=== PATIENT | male | born 1950 | race Caucasian/White ===

== ENCOUNTER 2018-04-20 03:24 | Emergency (ER) | payer BC, OTHER ==
[2018-04-20 04:01] LABS: Absolute Lymphocytes (CBC) 1.2 K/uL (0.7-4.9); Absolute Monocytes 0.7 K/uL (0.1-1.3); Absolute Neutrophil 4.3 K/uL (1.8-8.0); Basophils % 0.6 % (0-1.3); Eosinophils % 4.3 % (0-4.4); Hematocrit 44.2 % (39.6-49.0); Lymphocytes % 18.3 % (15.3-44.8); MCH 30.4 pg (27.0-35.0); MCV 90.3 fL (80-100); MPV 9.6 fL (7.6-11.3); Monocytes % 10.9 % (3.3-12.3)
[2018-04-20 04:11] LABS: Protime INR 1.06
[2018-04-20 04:25] LABS: ALT/SGPT 26 U/L (12-78); AST/SGOT 16 U/L (15-37); Albumin 3.7 g/dL (3.4-5.0); Alkaline Phosphatase 74 U/L (45-117); BUN Blood Urea Nitrogen 16 mg/dL (7-18); Bicarbonate 26 mmol/L (21-32); Bilirubin Direct 0.2 mg/dL (0-0.2); Bilirubin Total 0.6 mg/dL (0.2-1.0); Glucose Level 106 mg/dL (74-106); Magnesium 2.5 mg/dL (1.8-2.4); NT PRO-BNP 57 pg/mL (<125); Protein, Total 7.1 g/dL (6.4-8.2); Sodium Level 138 mmol/L (136-145); Troponin (Emerg Dept Use Only) < 0.02 ng/mL (0.0-0.045)
[2018-04-20] MEDS ORDERED: HYDROCODONE/CHLORPHEN 5 ML/OSYR ONE (04:53)
[2018-04-20] MEDS ORDERED: ALBUTEROL 2.5 MG/3 ML NEB SOL ONE (04:53)
[2018-04-20] MEDS ORDERED: IPRATROPIUM BROM 0.5MG/2.5ML ONE (04:53)
[2018-04-20] MEDS ORDERED: predniSONE 20 MG TAB ONE (04:53)
[2018-04-20] MEDS ORDERED: METHYLPREDNISOLONE 125 MG INJ ONE (04:53)
[2018-04-20] MEDS ORDERED: CEFTRIAXONE 500 MG/VIAL ONE (05:27)
[2018-04-20] MEDS ORDERED: DEXAMETHASONE 10 MG/ML VIAL ONE (05:27)
[2018-04-20] MEDS ORDERED: AZITHROMYCIN 250 MG TAB ONE (05:27)
[2018-04-20] MEDS ORDERED: NA CHLORIDE 0.9% 50 ML IV ONE (05:28)
[2018-04-20] MEDS ORDERED: PANTOPRAZOLE 40 MG INJ ONE (05:28)
[2018-04-20] MEDS ORDERED: LEVALBUTEROL 1.25 MG/3 ML NEB ONE (05:50)
--- NOTE | 2018-04-20 06:16 | ER ---
Nurse's Notes [facility] Name: Robert Love Jr Age: 68 yrs Sex: Male : 1950 Arrival Date: 04/20/2018 Time: 03:26 Bed 7 Private MD: Diagnosis: Cough;Bronchitis, not specified as acute or chronic;Acute upper respiratory infection, unspecified Presentation: 04/20 03:37 Presenting complaint: states: having productive cough since Wednesday yellowish rr5 phlegm no sore throat no fever reported. having auditory and visual hallucination seeing things around the house. Transition of care: patient was not received from another setting of care. Onset of symptoms was April 16, 2018. Risk Assessment: Do you want to hurt yourself or someone else? Patient reports no desire to harm self or others. Initial Sepsis Screen: Does the patient meet any 2 criteria? No. Patient's initial sepsis screen is negative. Does the patient have a suspected source of infection? No. Patient's initial sepsis screen is negative. Care prior to arrival: Medication(s) given: azithromycin and inhaler. 03:37 Method Of Arrival: Ambulatory rr5 03:56 Acuity: FRANCO 2 bb Triage Assessment: 03:46 General: Appears in no apparent distress. uncomfortable, Behavior is calm, cooperative, rr5 appropriate for age. Pain: Denies pain. Respiratory: Reports cough that is productive, Onset: The symptoms/episode began/occurred gradually, the patient has mild shortness of breath. Historical: - Allergies: 03:46 No Known Allergies; rr5 - Home Meds: 03:46 armor thyroid 30mg tablet [Active]; iodine oral oral [Active]; rasagaline [Active]; rr5 ropinirole oral oral [Active]; - PMHx: 03:46 Parkinsons; rr5 - Immunization history:: Adult Immunizations not up to date, Flu vaccine is not up to date. - Social history:: Smoking status: Patient/guardian denies using tobacco, Patient uses alcohol, occasionally. Patient/guardian denies using street drugs. - Ebola Screening: : Patient negative for fever greater than or equal to 101.5 degrees Fahrenheit, and additional compatible Ebola Virus Disease symptoms Patient denies exposure to infectious person Patient denies travel to an Ebola-affected area in the 21 days before illness onset. Screenin:50 Abuse screen: Denies threats or abuse. Denies injuries from another. Nutritional rr5 screening: No deficits noted. Tuberculosis screening: No symptoms or risk factors identified. Fall Risk IV access (20 points). Total Garcia Fall Scale indicates No Risk (0-24 pts). Assessment: 03:48 General: Appears in no apparent distress. uncomfortable, Behavior is calm, cooperative, rr5 appropriate for age. Pain: Denies pain. Neuro: Level of Consciousness is awake, alert, obeys commands, Oriented to person, place, time, situation. Cardiovascular: Capillary refill < 3 seconds Patient's skin is warm and dry. Rhythm is regular. Respiratory: Airway is patent Respiratory effort is even, Respiratory pattern is regular, tachypnea. GI: No signs and/or symptoms were reported involving the gastrointestinal system. : No signs and/or symptoms were reported regarding the genitourinary system. EENT: No signs and/or symptoms were reported regarding the EENT system. Derm: No signs and/or symptoms reported regarding the dermatologic system. Musculoskeletal: Capillary refill < 3 seconds, Range of motion: intact in all extremities. 03:50 Respiratory: Breath sounds with rhonchi bilaterally. Breath sounds with wheezes tl2 bilaterally. 05:30 Reassessment: Patient appears in no apparent distress at this time. coughing rr5 persistently, breathing treatment given. 06:00 Reassessment: Patient appears in no apparent distress at this time. Patient and/or rr5 family updated on plan of care and expected duration. Pain level reassessed. complaining of cough. breathing treatment rendered. 06:30 Reassessment: Patient appears in no apparent distress at this time. discharge rr5 instruction and medication explained with no question ask. feeling better now as verbalized Patient states feeling better. Patient states symptoms have improved. Vital Signs: 03:40 BP 155 / 110; Pulse 73; Resp 23; Temp 97.7; Pulse Ox 99% on R/A; Pain 0/10; rr5 03:48 Weight 105.23 kg; Height 6 ft. 0 in. (182.88 cm); rr5 05:14 BP 114 / 76; Pulse 80; Resp 18; Pulse Ox 98% on Nebulizer Mask; tl2 06:00 BP 133 / 76; Pulse 88; Resp 22; Pulse Ox 99% on R/A; rr5 06:46 BP 131 / 70; Pulse 85; Resp 20; Pulse Ox 99% on R/A; rr5 03:48 Body Mass Index 31.46 (105.23 kg, 182.88 cm) rr5 [place] Coma Score: 03:40 Eye Response: spontaneous(4). Verbal Response: oriented(5). Motor Response: obeys rr5 commands(6). Total: 15. ED Course: 03:26 Patient arrived in ED. al2 03:37 Franco Adams RN is Primary Nurse. rr5 03:40 Inserted saline lock: 20 gauge in right antecubital area, using aseptic technique. rr5 Blood collected. inserted by rosibel WEBSTER. 03:42 Triage completed. rr5 03:45 Patient has correct armband on for positive identification. Placed in gown. Bed in low rr5 position. Call light in reach. Side rails up X 1. Side rails up X2. Adult w/ patient. Pulse ox on. NIBP on. 03:48 Arm band placed on. rr5 03:53 Blood Culture Adult (2) Sent. tl2 03:55 X-ray completed. Portable x-ray completed in exam room. Patient tolerated procedure kw well. 04:05 Adrien Liu MD is Attending Physician. cathi 05:34 XRAY Chest (1 view) In Process Unspecified. EDMS 06:15 Blayne Luis MD is Referral Physician. cathi 06:30 No provider procedures requiring assistance completed. IV discontinued, intact, rr5 bleeding controlled, No redness/swelling at site. Pressure dressing applied. Administered Medications: 04:52 Drug: SOLU-Medrol 125 mg Route: IVP; Site: right antecubital; tl2 06:40 Follow up: Response: No adverse reaction rr5 04:52 Drug: predniSONE 60 mg Route: PO; tl2 06:40 Follow up: Response: No adverse reaction rr5 04:52 Drug: Albuterol - atroVENT (3:1) (2.5 mg - 0.5 mg) 3 ml Route: Nebulizer; tl2 06:40 Follow up: Response: No adverse reaction rr5 04:52 Drug: Tussionex Pennkinetic ER 5 ml Route: PO; tl2 06:40 Follow up: Response: No adverse reaction rr5 05:15 Drug: Decadron - Dexamethasone 10 mg Route: IVP; Site: right antecubital; rr5 06:40 Follow up: Response: No adverse reaction rr5 05:17 Drug: ProTONIX 40 mg Route: IVP; Site: right antecubital; rr5 06:40 Follow up: Response: No adverse reaction rr5 05:25 Drug: Rocephin - (cefTRIAXone) 1 grams Route: IVPB; Infused Over: 30 mins; Site: right rr5 antecubital; 06:00 Follow up: Response: No adverse reaction; IV Status: Completed infusion rr5 05:38 Drug: Zithromax 500 mg Route: PO; rr5 06:40 Follow up: Response: No adverse reaction rr5 05:58 Drug: Xopenex 2.5 mg Route: Inhalation; rr5 Outcome: 06:16 Discharge ordered by MD. winkler 06:30 Discharged to home ambulatory, with family. rr5 06:30 Condition: stable 06:30 Discharge instructions given to patient, family, Instructed on discharge instructions, follow up and referral plans. Demonstrated understanding of instructions, follow-up care, medications, Prescriptions given X 3. 06:48 Patient left the ED. rr5 Signatures: Dispatcher [employer] EDMS Adrien Liu MD MD cha Ballard, Brenda RN RN bb Margie Vail Taylor, RN RN derrell2 Jessica Esqueda Raymond RN RN rr5 Corrections: (The following items were deleted from the chart) 03:56 03:37 Acuity: FRANCO 3 rr5 bb
--- NOTE | 2018-04-20 06:17 | EDPHYS ---
Physician Documentation [facility] Name: Robert Love Jr Age: 68 yrs Sex: Male : 1950 Arrival Date: 04/20/2018 Time: 03:26 Bed 7 Private MD: ED Physician Adrien Liu HPI: 04/20 04:39 This 68 yrs old Male presents to ER via Ambulatory with complaints of cathi Productive Cough, HALLUCINATIONS. 04:39 The patient or guardian reports airway noise, cough, difficulty breathing. Onset: The cathi symptoms/episode began/occurred 3 day(s) ago. Severity of symptoms: At their worst the symptoms were mild, in the emergency department the symptoms are unchanged. Modifying factors: The symptoms are alleviated by nothing, the symptoms are aggravated by exertion. Associated signs and symptoms: The patient has no apparent associated signs or symptoms. The patient has experienced similar episodes in the past, several times. Historical: - Allergies: 03:46 No Known Allergies; rr5 - Home Meds: 03:46 armor thyroid 30mg tablet [Active]; iodine oral oral [Active]; rasagaline [Active]; rr5 ropinirole oral oral [Active]; - PMHx: 03:46 Parkinsons; rr5 - Immunization history:: Adult Immunizations not up to date, Flu vaccine is not up to date. - Social history:: Smoking status: Patient/guardian denies using tobacco, Patient uses alcohol, occasionally. Patient/guardian denies using street drugs. - Ebola Screening: : Patient negative for fever greater than or equal to 101.5 degrees Fahrenheit, and additional compatible Ebola Virus Disease symptoms Patient denies exposure to infectious person Patient denies travel to an Ebola-affected area in the 21 days before illness onset. ROS: 04:40 Constitutional: Negative for fever, chills, and weight loss, Eyes: Negative for injury, cathi pain, redness, and discharge, ENT: Negative for injury, pain, and discharge, Neck: Negative for injury, pain, and swelling, Cardiovascular: Negative for chest pain, palpitations, and edema, Abdomen/GI: Negative for abdominal pain, nausea, vomiting, diarrhea, and constipation, Back: Negative for injury and pain, : Negative for injury, bleeding, discharge, and swelling, MS/Extremity: Negative for injury and deformity, Skin: Negative for injury, rash, and discoloration, Neuro: Negative for headache, weakness, numbness, tingling, and seizure, Psych: Negative for depression, anxiety, suicide ideation, homicidal ideation, and hallucinations, Allergy/Immunology: Negative for hives, rash, and allergies, Endocrine: Negative for neck swelling, polydipsia, polyuria, polyphagia, and marked weight changes, Hematologic/Lymphatic: Negative for swollen nodes, abnormal bleeding, and unusual bruising. 04:40 Respiratory: Positive for cough, wheezing, inspiratory, expiratory. 04:40 MS/extremity: Negative for acute changes. Exam: 04:40 Constitutional: This is a well developed, well nourished patient who is awake, alert, cathi and in no acute distress. Head/Face: Normocephalic, atraumatic. Eyes: Pupils equal round and reactive to light, extra-ocular motions intact. Lids and lashes normal. Conjunctiva and sclera are non-icteric and not injected. Cornea within normal limits. Periorbital areas with no swelling, redness, or edema. ENT: Nares patent. No nasal discharge, no septal abnormalities noted. Tympanic membranes are normal and external auditory canals are clear. Oropharynx with no redness, swelling, or masses, exudates, or evidence of obstruction, uvula midline. Mucous membranes moist. Neck: Trachea midline, no thyromegaly or masses palpated, and no cervical lymphadenopathy. Supple, full range of motion without nuchal rigidity, or vertebral point tenderness. No Meningismus. Chest/axilla: Normal chest wall appearance and motion. Nontender with no deformity. No lesions are appreciated. Cardiovascular: Regular rate and rhythm with a normal S1 and S2. No gallops, murmurs, or rubs. Normal PMI, no JVD. No pulse deficits. Abdomen/GI: Soft, non-tender, with normal bowel sounds. No distension or tympany. No guarding or rebound. No evidence of tenderness throughout. Back: No spinal tenderness. No costovertebral tenderness. Full range of motion. Male : Normal genitalia with no discharge or lesions. Skin: Warm, dry with normal turgor. Normal color with no rashes, no lesions, and no evidence of cellulitis. MS/ Extremity: Pulses equal, no cyanosis. Neurovascular intact. Full, normal range of motion. Neuro: Awake and alert, GCS 15, oriented to person, place, time, and situation. Cranial nerves II-XII grossly intact. Motor strength 5/5 in all extremities. Sensory grossly intact. Cerebellar exam normal. Normal gait. Psych: Awake, alert, with orientation to person, place and time. Behavior, mood, and affect are within normal limits. 04:40 Respiratory: the patient does not display signs of respiratory distress, Respirations: normal, Breath sounds: bronchial sounds, that are mild, that are moderate, are heard in the left posterior upper lobe, right posterior upper lobe and right posterior middle lobe, decreased breath sounds, rhonchi, wheezing: expiratory that is mild, that is moderate. 04:43 Musculoskeletal/extremity: DVT Exam: No signs of deep vein thrombosis. no pain, no cathi swelling, no tenderness, negative Homans' sign noted on exam, no appreciated bluish discoloration, no erythema, no increased warmth. Vital Signs: 03:40 BP 155 / 110; Pulse 73; Resp 23; Temp 97.7; Pulse Ox 99% on R/A; Pain 0/10; rr5 03:48 Weight 105.23 kg; Height 6 ft. 0 in. (182.88 cm); rr5 05:14 BP 114 / 76; Pulse 80; Resp 18; Pulse Ox 98% on Nebulizer Mask; tl2 06:00 BP 133 / 76; Pulse 88; Resp 22; Pulse Ox 99% on R/A; rr5 06:46 BP 131 / 70; Pulse 85; Resp 20; Pulse Ox 99% on R/A; rr5 03:48 Body Mass Index 31.46 (105.23 kg, 182.88 cm) rr5 [place] Coma Score: 03:40 Eye Response: spontaneous(4). Verbal Response: oriented(5). Motor Response: obeys rr5 commands(6). Total: 15. MDM: 04:05 Patient medically screened. [facility] 04:40 Data reviewed: vital signs, nurses notes, lab test result(s), EKG, radiologic studies, [facility] plain films. 04/20 03:41 Order name: Basic Metabolic Panel; Complete Time: 04:38 tl2 04/20 03:41 Order name: CBC with Diff; Complete Time: 04:38 tl2 04/20 03:41 Order name: LFT's; Complete Time: 04:38 tl2 04/20 03:41 Order name: Magnesium; Complete Time: 04:38 tl2 04/20 03:41 Order name: NT PRO-BNP; Complete Time: 04:38 tl2 04/20 03:41 Order name: PT-INR; Complete Time: 04:38 tl2 04/20 03:41 Order name: Troponin (emerg Dept Use Only); Complete Time: 04:38 tl2 04/20 03:41 Order name: XRAY Chest (1 view) tl2 04/20 03:41 Order name: Blood Culture Adult (2) tl2 04/20 04:45 Order name: D-Dimer; Complete Time: 05:05 gm 04/20 03:41 Order name: EKG; Complete Time: 03:42 tl2 04/20 03:41 Order name: Cardiac monitoring; Complete Time: 03:41 tl2 04/20 03:41 Order name: EKG - Nurse/Tech; Complete Time: 03:53 tl2 04/20 03:41 Order name: IV Saline Lock; Complete Time: 03:41 tl2 04/20 03:41 Order name: Labs collected and sent; Complete Time: 03:41 tl2 04/20 03:41 Order name: O2 Per Protocol; Complete Time: 03:42 tl2 04/20 03:41 Order name: O2 Sat Monitoring; Complete Time: 03:42 tl2 Administered Medications: 04:52 Drug: SOLU-Medrol 125 mg Route: IVP; Site: right antecubital; tl2 06:40 Follow up: Response: No adverse reaction rr5 04:52 Drug: predniSONE 60 mg Route: PO; tl2 06:40 Follow up: Response: No adverse reaction rr5 04:52 Drug: Albuterol - atroVENT (3:1) (2.5 mg - 0.5 mg) 3 ml Route: Nebulizer; tl2 06:40 Follow up: Response: No adverse reaction rr5 04:52 Drug: Tussionex Pennkinetic ER 5 ml Route: PO; tl2 06:40 Follow up: Response: No adverse reaction rr5 05:15 Drug: Decadron - Dexamethasone 10 mg Route: IVP; Site: right antecubital; rr5 06:40 Follow up: Response: No adverse reaction rr5 05:17 Drug: ProTONIX 40 mg Route: IVP; Site: right antecubital; rr5 06:40 Follow up: Response: No adverse reaction rr5 05:25 Drug: Rocephin - (cefTRIAXone) 1 grams Route: IVPB; Infused Over: 30 mins; Site: right rr5 antecubital; 06:00 Follow up: Response: No adverse reaction; IV Status: Completed infusion rr5 05:38 Drug: Zithromax 500 mg Route: PO; rr5 06:40 Follow up: Response: No adverse reaction rr5 05:58 Drug: Xopenex 2.5 mg Route: Inhalation; rr5 Disposition: 04/20/18 06:16 Discharged to Home. Impression: Cough, Bronchitis, not specified as acute or chronic, Acute upper respiratory infection, unspecified. - Condition is Stable. - Discharge Instructions: Acute Bronchitis, Adult, How to Use an Inhaler, Upper Respiratory Infection, Adult, Cool Mist Vaporizer, Acute Bronchitis, [id number], Upper Respiratory Infection, Adult, Xcec-ia-Mmwp, Cough, Adult, [id number]-cc-[id number], Cough, Adult. - Prescriptions for Cheratussin AC 10- 100 mg/5 mL Oral liquid - take 10 milliliters by ORAL route every 4 hours; 180 milliliter. Prednisone 20 mg Oral Tablet - take 2 tablet by ORAL route once daily for 5 days; 10 tablet. Albuterol Sulfate 90 mcg/actuation - inhale 1-2 puff by INHALATION route every 4-6 hours; 1 Inhaler. Zithromax 500 mg Oral Tablet - take 1 tablet by ORAL route once daily for 5 days; 5 tablet. Protonix 40 mg Oral Tablet - take 1 tablet by ORAL route once daily; 30 tablet. - Medication Reconciliation Form, Thank You Letter, Antibiotic Education, Prescription Opioid Use form. - Follow up: Private Physician; When: 2 - 3 days; Reason: Recheck today's complaints, Continuance of care, Re-evaluation by your physician. Follow up: Blayne Luis; When: 2 - 3 days; Reason: Recheck today's complaints, Re-evaluation by your physician. - Problem is new. - Symptoms have improved. Signatures: Dispatcher [employer] EDAdrien Beal MD MD cha Knox, Taylor, RN RN tl2 Franco Adams RN RN rr5 Corrections: (The following items were deleted from the chart) 06:48 06:16 04/20/2018 06:16 Discharged to Home. Impression: Cough; Bronchitis, not specified rr5 as acute or chronic; Acute upper respiratory infection, unspecified. Condition is Stable. Discharge Instructions: Acute Bronchitis, Adult, How to Use an Inhaler, Upper Respiratory Infection, Adult, Cool Mist Vaporizer, Acute Bronchitis, Paeh-yu-Ijxp, Upper Respiratory Infection, Adult, Cxjv-rn-Gmpa, Cough, Adult, Ycnk-gf-Ivlw, Cough, Adult. Prescriptions for Prednisone 20 mg Oral Tablet - take 2 tablet by ORAL route once daily for 5 days; 10 tablet, Albuterol Sulfate 90 mcg/actuation - inhale 1-2 puff by INHALATION route every 4-6 hours; 1 Inhaler, Zithromax 500 mg Oral Tablet - take 1 tablet by ORAL route once daily for 5 days; 5 tablet, Cheratussin AC 10-100 mg/5 mL Oral liquid - take 10 milliliters by ORAL route every 4 hours; 180 milliliter, Protonix 40 mg Oral Tablet - take 1 tablet by ORAL route once daily; 30 tablet. and Forms are Medication Reconciliation Form, Thank You Letter, Antibiotic Education, Prescription Opioid Use. Follow up: Private Physician; When: 2 - 3 days; Reason: Recheck today's complaints, Continuance of care, Re-evaluation by your physician. Follow up: Blayne Luis; When: 2 - 3 days; Reason: Recheck today's complaints, Re-evaluation by your physician. Problem is new. Symptoms have improved. cathi
--- NOTE | 2018-04-20 07:54 | RAD REPORT ---
EXAM DESCRIPTION: [place] Single View04/20/2018 5:34 am CLINICAL HISTORY: Chest pain COMPARISON: March 2017 FINDINGS: The lungs appear clear of acute infiltrate. The heart is borderline enlarged IMPRESSION: No acute abnormalities displayed
--- NOTE | 2018-04-20 10:38 | EKG ---
Test Date: 2018-04-20 Test Time: 03:49:06 Extractor Plant Operator: FARHAD MEASUREMENT RESULTS: Intervals: Rate: 71 WY: 206 QRSD: 100 QT: 398 QTc: 432 [place]: P: 54 WY: 206 QRS: -26 T: 45 INTERPRETIVE STATEMENTS: Normal sinus rhythm Incomplete right bundle branch block Abnormal ECG No previous ECG available for comparison Electronically Signed On 04-20-18 10:37:41 AUTOMATION AND CONTROLS SUPERVISOR by Clifford Rodriguez
== END 2018-04-20 06:48 | disposition home or self-care (01) ==
LOC: ER 03:24
DX: J40 Bronchitis, not specified as acute or chronic (principal); J06.9 Acute upper respiratory infection, unspecified; G20 Parkinson's disease
CPT/HCPCS: 36415; 71045; 80048; 80076; 83735; 83880; 84484; 85025; 85379; 85610; 87040 ×2; 93005; 94640; 96365; 96375; 99284; C9113; J0696; J1100; J2930; J7512

== ENCOUNTER 2019-06-09 06:30 | Day surgery (SDC) | payer OTHER ==
--- NOTE | 2019-06-08 15:48 | RAD REPORT ---
EXAM DESCRIPTION: RAD - Chest Pa And Lat (2 Views) - 06/08/2019 3:05 pm CLINICAL HISTORY: pre op, patient pending right shoulder soft tissue mass removal COMPARISON: Chest Single View dated 04/20/2018; Chest Pa And Lat (2 Views) dated 04/08/2017 TECHNIQUE: Frontal and lateral views of the chest were obtained. FINDINGS: The lungs are clear of acute infiltrate or mass. Small nodule left midlung field stable ba ck to 2017. Interstitial pattern is stable. Heart size is normal and central vasculature is within normal limits. No pleural effusion or pneumothorax seen. No acute bony finding noted. No aortic ab normality. IMPRESSION: No acute cardiopulmonary process. No significant interval change.
[2019-06-08 16:08] LABS: Absolute Lymphocytes (CBC) 1.3 K/uL (0.7-4.9); Basophils % 0.7 % (0-1.3); Hematocrit 45.4 % (39.6-49.0); Lymphocytes % 19.3 % (15.3-44.8); MPV 10.1 fL (7.6-11.3); RBC Red Blood Cell Count 4.97 M/uL (4.33-5.43)
[2019-06-08 16:20] LABS: Potassium 4.2 mmol/L (3.5-5.1)
[2019-06-09] MEDS ORDERED: Ringers Lactate 1,000 ML IV ONE (06:43)
[2019-06-09] MEDS ORDERED: FENTANYL CITR 100 MCG/2 ML ONE (07:10)
[2019-06-09] MEDS ORDERED: propofoL 200 MG/20 ML VIAL IV ONE (07:10)
[2019-06-09] MEDS ORDERED: MIDAZOLAM HCL 2 MG/2 ML INJ ONE (07:11)
[2019-06-09] MEDS ORDERED: LIDOCAINE 2% MPF 5 ML VIAL ONE (07:11)
[2019-06-09] MEDS: CEFAZOLIN/SWI 1gm 1 GM/10 ML SYR ONE ×2 (07:15→07:23)
[2019-06-09] MEDS ORDERED: ONDANSETRON 4 MG/2 ML VIAL ONE (08:03)
[2019-06-09 08:37] VITALS: O2SAT 97
[2019-06-09 13:42] VITALS: BP 155/90; TEMP 97.4
--- NOTE | 2019-06-09 13:50 | EKG ---
Test Date: 2019-06-08 Test Time: 14:30:58 Dining Room Coordinator: EZEQUIEL MEASUREMENT RESULTS: Intervals: Rate: 75 MA: 208 QRSD: 90 QT: 384 QTc: 428 [place]: P: 40 MA: 208 QRS: -45 T: 25 INTERPRETIVE STATEMENTS: Normal sinus rhythm Left anterior fascicular block Anterolateral infarct, age undetermined Abnormal ECG Compared to ECG 04/20/2018 03:49:06 Left anterior fascicular block now present Myocardial infarct finding now present Incomplete right bundle-branch block no longer present Electronically Signed On 06-09-19 13:46:11 ASSET CARD CLERK by Ulisses Vasquez
--- NOTE | 2019-06-09 18:39 | OP ---
Date of Procedure: 06/09/2019 Surgeon: Juan Prado MD Media Planner / Buyer: RENE Sanchez Preoperative Diagnosis: Right posterior shoulder mass. Postoperative Diagnosis: Right posterior shoulder mass. Procedure: Wide excision, right posterior shoulder mass 6 x 4 cm with layered closure. Length of cl osure 6 cm. Estimated Blood Loss: Minimal. Specimen: Right posterior shoulder mass. Findings: Sebaceous cyst, slight inflamed. Anesthesia: General. Complications: None. Patient tolerated the procedure in stable condition, taken to Recovery in good general condition. Procedure In Detail: Patient was brought to the OR and placed in supine position. General anesthesi a was begun. Then, the patient was placed in left lateral position and prepped and draped in usual s terile fashion. Marcaine 0.5% was infiltrated locally. A 15-blade was used to make a 6 x 4 cm incis ion transverse over the punctum to include the punctum and the cyst wall of subcutaneous tissue, divi ded entire cyst intact, excised, sent to Pathology. Wound was irrigated. Bleeding controlled with c autery. Flaps created and then 2-0 chromic used for subcutaneous tissue and 3-0 nylon used to reappr oximate the skin with a little bit of room left for drainage purposes, then sterile dressing was appl ied. Patient was awakened and taken to Recovery in good general condition. Discharge Note: The patient will go to day surgery and home when stable. Disposition: Home. Condition: Stable. Discharge Instructions: Resume home medications and diet. Activity as tolerated. No heavy lifting. Remove outer dressing in 2 days. Shower. Keep wound clean and dry. Follow up in my office in 2 w eeks. Call for appointment. Tylenol No. 3 one tablet p.o. q.4 p.r.n. pain. Cipro 500 mg p.o. q.12 h. /MODL Voice ID: [id number] Report ID: [id number]
== END 2019-06-09 10:12 | disposition home or self-care (01) ==
LOC: OR 06:30
PROVIDERS: ATTEND Surgery
PROC: 0JBD0ZZ Excision of Right Upper Arm Subcutaneous Tissue and Fascia, Open Approach (ICD-10-PCS; principal; 2019-06-09 07:30)
DX: L72.0 Epidermal cyst (principal); G20 Parkinson's disease; E07.9 Disorder of thyroid, unspecified
CPT/HCPCS: 93005; 85025; 80048; 36415; 88304; 71046; 11406; J2704; J2250; J3010; J0690; J7120; J2405

== ENCOUNTER 2021-11-16 16:53 | Emergency (ER) | payer OTHER ==
[2021-11-16 17:26] LABS: Hematocrit 41.4 % (39.6-49.0); Lymphocytes % 16.8 % (15.3-44.8); MCV 90.9 fL (80-100); MPV 9.1 fL (7.6-11.3); RBC Red Blood Cell Count 4.55 M/uL (4.33-5.43)
[2021-11-16 17:42] LABS: Potassium 3.5 mmol/L (3.5-5.1); Troponin High Sensitivity 7.5 pg/mL (<58.9)
--- NOTE | 2021-11-16 18:45 | RAD REPORT ---
EXAM DESCRIPTION: CT - Head Brain Wo Cont - 11/16/2021 6:31 pm CLINICAL HISTORY: weakness Headache, drowsiness COMPARISON: No comparisons TECHNIQUE: All CT scans are performed using dose optimization technique as appropriate and may inclu de automated exposure control or mA/KV adjustment according to patient size. FINDINGS: No intracranial hemorrhage, hydrocephalus or extra-axial fluid collection.Mild generalized brain atrophy is present with mild periventricular and deep white matter chronic microvascular ische naun changes.No areas of brain edema or evidence of midline shift. The paranasal sinuses and mastoids are clear. The calvarium is intact. IMPRESSION: No acute intracranial abnormality.
[2021-11-16 20:35] LABS: Urine Blood Negative (Negative); Urine Glucose Negative (Negative); Urine Protein Negative (Negative); Urine Specific Gravity 1.025 (1.005-1.030)
--- NOTE | 2021-11-16 21:22 | ER ---
Nurse's Notes [facility] Name: Robert Love Jr Age: 71 yrs Sex: Male : 1950 Arrival Date: 11/16/2021 Time: 17:00 Bed 18 Private MD: Diagnosis: Weakness Presentation: 11/16 16:53 Chief complaint: EMS states: pt was at the local movie theater with his daughter. she tw2 said he was getting out of the vehicle and just was taking too long to move and just stood there in the heat and the daughter thinks he got over heated. we initially got bp of 80/50. upon arrival here we got 95/63. we started an 18g RIGHT hand and started NS. Coronavirus screen: At this time, the client does not indicate any symptoms associated with coronavirus-19. Ebola Screen: Patient denies travel to an Ebola-affected area in the 21 days before illness onset. Initial Sepsis Screen: Does the patient meet any 2 criteria? No. Patient's initial sepsis screen is negative. Does the patient have a suspected source of infection? No. Patient's initial sepsis screen is negative. Risk Assessment: Do you want to hurt yourself or someone else? Patient reports no desire to harm self or others. Note provider at bedside. Onset of symptoms was November 16, 2021. 16:53 Method Of Arrival: EMS: [facility] tw2 16:53 Acuity: FRANCO 2 tw2 16:53 Care prior to arrival: Medication(s) given: Normal saline infusion, approx 100 ml of NS tw2 IV initiated. 18 GA, in the right hand. Triage Assessment: 16:53 General: Appears in no apparent distress. well groomed, Behavior is calm, cooperative, tw2 appropriate for age. Pain: Denies pain. Neuro: Level of Consciousness is awake, alert, obeys commands, Oriented to person, place, time, situation. Cardiovascular: Capillary refill < 3 seconds Patient's skin is warm and dry. Respiratory: Airway is patent Respiratory effort is even, unlabored, Respiratory pattern is regular, symmetrical. GI: No signs and/or symptoms were reported involving the gastrointestinal system. Derm: Skin is intact, is healthy with good turgor, Skin is dry, Skin is pink, warm \\T\\ dry. Skin temperature is warm. Musculoskeletal: Range of motion: intact in all extremities. Historical: - Allergies: 17:57 No Known Allergies; tw2 - PMHx: 17:57 Parkinsons; Dementia; tw2 - Immunization history:: Adult Immunizations Client reports receiving the 2nd dose of the Covid vaccine. - Social history:: Smoking status: Patient denies any tobacco usage or history of. Screenin:14 Abuse screen: Denies threats or abuse. Nutritional screening: No deficits noted. tw2 Tuberculosis screening: No symptoms or risk factors identified. Fall Risk None identified. Assessment: 16:53 Reassessment: see triage assessment. tw2 17:57 Reassessment: Patient appears in no apparent distress at this time. No changes from tw2 previously documented assessment. Patient and/or family updated on plan of care and expected duration. Pain level reassessed. Patient is alert, oriented x 3, equal unlabored respirations, skin warm/dry/pink. 18:18 Reassessment: Patient appears in no apparent distress at this time. No changes from tw2 previously documented assessment. Patient and/or family updated on plan of care and expected duration. Pain level reassessed. Patient is alert, oriented x 3, equal unlabored respirations, skin warm/dry/pink. 18:31 Reassessment: pt is in CT at this time via stretcher with Rashawn Lopez. tw2 20:34 General: Appears in no apparent distress. comfortable, Behavior is calm, cooperative. lg3 Pain: Denies pain. Neuro: No deficits noted. Level of Consciousness is awake, alert, obeys commands, Oriented to person, place, time, situation. Cardiovascular: No deficits noted. Denies chest pain, shortness of breath, Capillary refill < 3 seconds Clubbing of nail beds is absent JVD is absent Patient's skin is warm and dry. Respiratory: No deficits noted. Airway is patent Trachea midline Respiratory effort is even, unlabored, Respiratory pattern is regular, symmetrical, Breath sounds are clear bilaterally. GI: No deficits noted. No signs and/or symptoms were reported involving the gastrointestinal system. Abdomen is round non-distended. : No deficits noted. No signs and/or symptoms were reported regarding the genitourinary system. EENT: No deficits noted. No signs and/or symptoms were reported regarding the EENT system. Derm: No deficits noted. No signs and/or symptoms reported regarding the dermatologic system. Skin is intact, is healthy with good turgor, Skin is dry, Skin temperature is warm. Musculoskeletal: No deficits noted. No signs and/or symptoms reported regarding the musculoskeletal system. Circulation, motion, and sensation intact. Range of motion: intact in all extremities. 21:54 Reassessment: Patient appears in no apparent distress at this time. No changes from lg3 previously documented assessment. Patient and/or family updated on plan of care and expected duration. Pain level reassessed. Patient is alert, oriented x 3, equal unlabored respirations, skin warm/dry/pink. Vital Signs: 16:53 BP 87 / 52; Pulse 73; Resp 14; Temp 99.1(TE); Pulse Ox 96% on R/A; Weight 99.79 kg (R); tw2 Height 6 ft. 0 in. (182.88 cm); 17:15 BP 104 / 62; Pulse 67; Resp 16; Pulse Ox 96% on R/A; tw2 17:30 BP 101 / 64; Pulse 68; Resp 15; Pulse Ox 96% on R/A; tw2 17:45 BP 129 / 72; Pulse 64; Resp 12; Pulse Ox 96% on R/A; tw2 18:00 BP 121 / 70; Pulse 62; Resp 14; Pulse Ox 96% on R/A; tw2 20:35 BP 165 / 103; Pulse 70; Resp 15 S; Pulse Ox 98% on R/A; lg3 21:54 BP 165 / 95; Pulse 71; Resp 16 S; Pulse Ox 99% on R/A; lg3 16:53 Body Mass Index 29.84 (99.79 kg, 182.88 cm) tw2 ED Course: 16:53 Arm band placed on. tw2 16:53 Placed in gown. Bed in low position. Call light in reach. Side rails up X2. Cardiac tw2 monitor on. Pulse ox on. NIBP on. 17:00 Patient arrived in ED. tw2 17:01 [facility] kb 17:01 Mauro Talbot MD is Attending Physician. kb 17:06 Triage completed. tw2 17:13 Sarah Bronson RN is Primary Nurse. tw2 17:14 Maintain EMS IV. Dressing intact. Good blood return noted. Site clean \\T\\ dry. Gauge \\T\\ tw 2 site: 18 g RIGHT hand. 17:29 EKG done, by ED staff, reviewed by Una DEY. mb7 18:33 CT Head Brain wo Cont In Process Unspecified. EDIA 19:30 Initial lab(s) drawn, by md, sent to lab. 19:30 Lactate Sent. 19:30 Procalcitonin Sent. 19:30 COVID-19 SARS RT PCR (Document "Date of Onset" if Symptomatic) Sent. 21:54 No provider procedures requiring assistance completed. IV discontinued, intact, lg3 bleeding controlled, No redness/swelling at site. Pressure dressing applied. Administered Medications: No medications were administered Medication: 17:59 VIS not applicable for this client. tw2 Outcome: 21:21 Discharge ordered by . kb 21:55 Discharged to home via wheelchair, with significant other. lg3 21:55 Condition: stable 21:55 Discharge instructions given to patient, significant other, Instructed on discharge instructions, follow up and referral plans. Demonstrated understanding of instructions, follow-up care. 22:05 Patient left the ED. lg3 Signatures: Dispatcher [employer] EDIA Una Shah, Sarah Rojas RN RN tw2 Cynthia Partida, DARIN RN lg3 Salina Lopez Mary mb7
--- NOTE | 2021-11-16 21:22 | EDPHYS ---
Physician Documentation [facility] Name: Robert Love Jr Age: 71 yrs Sex: Male : 1950 Arrival Date: 11/16/2021 Time: 17:00 Bed 18 Private MD: ED Physician Mauro Talbot HPI: 11/17 00:26 This 71 yrs old Male presents to ER via EMS with complaints of weakness. kb 00:26 The patient presents with generalized weakness. Onset: The symptoms/episode kb began/occurred today. Context: occurred outdoors, occurred while the patient was walking, just prior to the episode the patient experienced no apparent symptoms. Modifying factors: The symptoms are alleviated by nothing, the symptoms are aggravated by nothing. Associated signs and symptoms: The patient has no apparent associated signs or symptoms. Severity of symptoms: At their worst the symptoms were moderate in the emergency department the symptoms are unchanged. Patient's baseline: Neuro: alert and fully oriented, Motor: no deficits, Ambulation: walks with assist only, Speech: normal. The patient has not experienced similar symptoms in the past. The patient has not recently seen a physician. Pt brought in for weakness and possibly getting overheated. EMS reports pt was going to the movie theater, daughter reports pt took longer than normal to get out of the car and that he was in the heat. Pt has no complaints. Equal strength. Pt has history of dementia and parkinsons. Historical: - Allergies: 11/16 17:57 No Known Allergies; tw2 - PMHx: 17:57 Parkinsons; Dementia; tw2 - Immunization history:: Adult Immunizations Client reports receiving the 2nd dose of the Covid vaccine. - Social history:: Smoking status: Patient denies any tobacco usage or history of. ROS: 11/17 00:25 Constitutional: Negative for fever, chills, and weight loss. kb Neuro: Positive for weakness. All other systems are negative. Exam: 00:25 Constitutional: This is a well developed, well nourished patient who is awake, alert, kb and in no acute distress. Head/Face: Normocephalic, atraumatic. ENT: Moist Mucous membranes Cardiovascular: Regular rate and rhythm with a normal S1 and S2. No gallops, murmurs, or rubs. No pulse deficits. Respiratory: Respirations even and unlabored. No increased work of breathing. Talking in full sentences Abdomen/GI: Soft, non-tender. No distention Skin: Warm, dry with normal turgor. Normal color. MS/ Extremity: Pulses equal, no cyanosis. Neurovascular intact. Full, normal range of motion. Neuro: Awake and alert, GCS 15, oriented to person, place, time, and situation. Moves all extremities. Normal gait. Psych: Awake, alert, with orientation to person, place and time. Behavior, mood, and affect are within normal limits. Vital Signs: 11/16 16:53 BP 87 / 52; Pulse 73; Resp 14; Temp 99.1(TE); Pulse Ox 96% on R/A; Weight 99.79 kg (R); tw2 Height 6 ft. 0 in. (182.88 cm); 17:15 BP 104 / 62; Pulse 67; Resp 16; Pulse Ox 96% on R/A; tw2 17:30 BP 101 / 64; Pulse 68; Resp 15; Pulse Ox 96% on R/A; tw2 17:45 BP 129 / 72; Pulse 64; Resp 12; Pulse Ox 96% on R/A; tw2 18:00 BP 121 / 70; Pulse 62; Resp 14; Pulse Ox 96% on R/A; tw2 20:35 BP 165 / 103; Pulse 70; Resp 15 S; Pulse Ox 98% on R/A; lg3 21:54 BP 165 / 95; Pulse 71; Resp 16 S; Pulse Ox 99% on R/A; lg3 16:53 Body Mass Index 29.84 (99.79 kg, 182.88 cm) tw2 MDM: 17:01 Patient medically screened. pablo 11/17 00:26 Data reviewed: vital signs, nurses notes. Data interpreted: Pulse oximetry: on room air kb is 99 %. Interpretation: normal. Counseling: I had a detailed discussion with the patient and/or guardian regarding: the historical points, exam findings, and any diagnostic results supporting the discharge/admit diagnosis, lab results, radiology results, the need for outpatient follow up, a family practitioner, to return to the emergency department if symptoms worsen or persist or if there are any questions or concerns that arise at home. 00:26 Data reviewed: I have discussed the patient's presentation/case with the attending pablo Emergency Department Physician;. 11/16 17:01 Order name: Basic Metabolic Panel; Complete Time: 17:43 kb 11/16 17:01 Order name: CBC with Diff; Complete Time: 17:34 kb 11/16 17:01 Order name: Troponin HS; Complete Time: 17:43 kb 11/16 17:01 Order name: CPK; Complete Time: 17:43 kb 11/16 18:59 Order name: Procalcitonin; Complete Time: 20:50 kb 11/16 18:59 Order name: Lactate; Complete Time: 20:43 kb 11/16 17:01 Order name: EKG; Complete Time: 17:02 kb 11/16 17:01 Order name: Cardiac monitoring; Complete Time: 17:13 kb 11/16 17:01 Order name: EKG - Nurse/Tech; Complete Time: 17:29 kb 11/16 17:01 Order name: IV Saline Lock; Complete Time: 17:13 kb 11/16 17:01 Order name: Labs collected and sent; Complete Time: 17:13 kb 11/16 17:59 Order name: CT Head Brain wo Cont; Complete Time: 18:58 kb 11/16 18:59 Order name: COVID-19 SARS RT PCR (Document "Date of Onset" if Symptomatic); Complete kb Time: 20:43 11/16 20:35 Order name: Urine Dipstick-Ancillary; Complete Time: 20:43 EDMS 11/16 17:01 Order name: O2 Per Protocol; Complete Time: 17:06 kb 11/16 17:01 Order name: O2 Sat Monitoring; Complete Time: 17:13 kb 11/16 18:59 Order name: Urine Dipstick-Ancillary (obtain specimen); Complete Time: 20:32 kb Administered Medications: No medications were administered Disposition: 06:59 Co-signature as Attending Physician, Mauro Talbot MD. rn Disposition Summary: 11/16/21 21:21 Discharge Ordered Location: Home kb Condition: Stable kb Diagnosis - Weakness kb Followup: kb - With: Emergency Department - When: As needed - Reason: Worsening of condition Followup: kb - With: Private Physician - When: 2 - 3 days - Reason: Recheck today's complaints, Continuance of care, Re-evaluation by your physician Discharge Instructions: - Discharge Summary Sheet kb - Weakness, [id number] kb Forms: - Medication Reconciliation Form kb - Thank You Letter kb - Antibiotic Education kb - Prescription Opioid Use kb Signatures: Dispatcher [employer] Una Ye, RESTAURANT COOK-C [employer]-Ckb Mauro Talbot MD MD rn Sarah Bronson RN RN tw2
[2021-11-16 22:36] VITALS: TEMP 99.1
[2021-11-16 22:46] VITALS: BP 165/95; O2SAT 99
--- NOTE | 2021-11-17 13:47 | EKG ---
Test Date: 2021-11-16 Test Time: 17:29:17 Supervisor Pumping: MB MEASUREMENT RESULTS: Intervals: Rate: 66 MT: 220 QRSD: 96 QT: 416 QTc: 436 Wayne: P: 48 MT: 220 QRS: -56 T: -9 INTERPRETIVE STATEMENTS: Sinus rhythm with 1st degree AV block Incomplete right bundle branch block Left anterior fascicular block Abnormal ECG Compared to ECG 06/08/2019 14:30:58 First degree AV block now present Incomplete right bundle-branch block now present Myocardial infarct finding no longer present Electronically Signed On 11-17-21 13:45:45 CDT by Basil Giang
== END 2021-11-16 22:05 | disposition home or self-care (01) ==
LOC: ER 16:53
DX: R53.1 Weakness (principal); Z20.822 Contact with and (suspected) exposure to COVID-19; G20 Parkinson's disease; F02.80 Dementia in other diseases classified elsewhere, unspecified severity, without behavioral disturbance, psychotic disturbance, mood disturbance, and anxiety
CPT/HCPCS: 93005; 85025; 80048; 36415; 82550; 83605; 81003; 84484; 84145; 70450; U0003; 99284

== ENCOUNTER 2024-06-30 08:15 | Emergency (ER) | payer OTHER ==
[2024-06-30] MEDS ORDERED: NA CHLORIDE 0.9% 1,000 ML ONE (08:30)
[2024-06-30 09:19] LABS: Absolute Eosinophils 0.1 K/uL (0-0.5); Absolute Lymphocytes (CBC) 0.7 K/uL (0.7-4.9); Absolute Monocytes 0.4 K/uL (0.1-1.3); Basophils % 0.3 % (0-1.3); Eosinophils % 1.5 % (0-4.4); Hematocrit 46.8 % (39.6-49.0); Hemoglobin 15.5 g/dL (13.6-17.9); MCH 30.2 pg (27.0-35.0); MCHC 33.2 g/dL (32.0-36.0); MCV 91.1 fL (80-100); MPV 8.7 fL (7.6-11.3); Monocytes % 5.2 % (3.3-12.3); Nucleated Red Blood Cells % 0.1 % (0-0); Platelets 195 thou/uL (152-406); RBC Red Blood Cell Count 5.13 M/uL (4.33-5.43); Red Cell Distribution Width 13.6 % (12.1-15.2)
[2024-06-30 09:38] LABS: Albumin 3.6 g/dL (3.4-5.0); Anion Gap 7.2 mEq/L (5.0-15.0); Bilirubin Direct 0.2 mg/dL (0-0.2); Bilirubin Indirect, Calculated 0.4 mg/dL (0.2-0.8); Bilirubin Total 0.6 mg/dL (0.2-1.0); Globulin 3.5 g/dL (2.3-3.5); Potassium 4.2 mEq/L (3.5-5.1); Protein, Total 7.1 g/dL (6.4-8.2)
--- NOTE | 2024-06-30 09:59 | RAD REPORT ---
EXAMINATION: XR RIGHT SHOUDLER CLINICAL INDICATION: Male, 74 years old. PAIN RIGHT TECHNIQUE: Multiple views of the right shoulder were obtained. COMPARISON: No prior exam. FINDINGS: Prominent diffuse osteopenia. Mild AC joint and glenohumeral joint arthritic changes. No ac [place] fracture seen.
--- NOTE | 2024-06-30 10:30 | RAD REPORT ---
EXAM: CT brain without contrast HISTORY: PAIN COMPARISON: None TECHNIQUE: Multiple contiguous axial images were obtained and a CT of the brain without contrast. Sag ittal and coronal reformats were performed. One or more of the following dose reduction techniques were used: Automated exposure control, adjust ment of the mA and/or kV according to patient size, and/or iterative reconstruction. FINDINGS: No evidence of hydrocephalus, intracranial hemorrhage, or extra-axial fluid collection. Moderate brain atrophy with moderate periventricular and deep white matter chronic microvascular isc hemic changes present. No evidence of midline shift or areas of brain edema. The calvarium is intact. The visualized paranasal sinuses and mastoid air cells are essentially clear . IMPRESSION: No evidence of acute intracranial abnormality. EXAM: CT of the cervical spine without contrast HISTORY: Neck pain, injury PAIN TECHNIQUE: Multiple contiguous axial images were obtained in a CT of the cervical spine without contr ast. Sagittal and coronal reformats were performed. FINDINGS: 3-4 mm degenerative anterolisthesis C4 on 5. Disc thinning with small posterior osteophyte noted lower cervical levels. No evidence of acute fracture or subluxation.. No prevertebral soft tissue swelling is seen. The posterior facets are well aligned. Normal alignment of the skull base with the cervical spine is seen. Bilateral mild carotid atherosclerosis. The lung apices are unremarkable. IMPRESSION: No evidence of acute osseous abnormality of the cervical spine. 3-4 mm degenerative anterolisthesis C4 on 5.
--- NOTE | 2024-06-30 10:44 | EDPHYS ---
Physician Documentation [facility] Name: Robert Love Jr Age: 74 yrs Sex: Male : 1950 Arrival Date: 06/30/2024 Time: 08:15 Bed 2 Private MD: ED Physician Adrien Liu HPI: 06/30 08:23 This 74 yrs old Male presents to ER via EMS with complaints of FALL ON cathi STAIRS, RIGHT SHOULDER PAIN. 08:23 Trauma demographics: County: The injury occurred in [place]. Mechanism of injury: cathi Fall: approximately approximately 6 feet. Associated injuries: The patient sustained anterior aspect of right shoulder and posterior aspect of right shoulder, contusion, decreased range of motion. The patient or guardian complains of pain. right shoulder. Onset: The symptoms/episode began/occurred just prior to arrival. PARKINSONISM, FALL. Historical: - Allergies: 08:23 No Known Allergies; ko1 - Home Meds: 08:23 Unable to obtain [Active]; ko1 - PMHx: 08:23 Dementia; Parkinsons; ko1 - Immunization history:: Adult Immunizations unknown. - Infectious Disease History:: Denies. - Social history:: Smoking status: unknown. - Family history:: not pertinent. ROS: 08:23 Constitutional: Negative for fever, chills, and weight loss, Eyes: Negative for injury, cathi pain, redness, and discharge, ENT: Negative for injury, pain, and discharge, Neck: Negative for injury, pain, and swelling, Cardiovascular: Negative for chest pain, palpitations, and edema, Respiratory: Negative for shortness of breath, cough, wheezing, and pleuritic chest pain, Abdomen/GI: Negative for abdominal pain, nausea, vomiting, diarrhea, and constipation, Back: Negative for injury and pain, : Negative for injury, bleeding, discharge, and swelling, Skin: Negative for injury, rash, and discoloration, Neuro: Negative for headache, weakness, numbness, tingling, and seizure, Psych: Negative for depression, anxiety, suicide ideation, homicidal ideation, and hallucinations, Allergy/Immunology: Negative for hives, rash, and allergies, Endocrine: Negative for neck swelling, polydipsia, polyuria, polyphagia, and marked weight changes, Hematologic/Lymphatic: Negative for swollen nodes, abnormal bleeding, and unusual bruising, 08:23 MS/extremity: Positive for injury or acute deformity, decreased range of motion, pain, swelling, tenderness, of the anterior aspect of right shoulder and posterior aspect of right shoulder, Exam: 08:23 Constitutional: This is a well developed, well nourished patient who is awake, alert, cathi and in no acute distress. Head/Face: Normocephalic, atraumatic. Eyes: Pupils equal round and reactive to light, extra-ocular motions intact. Lids and lashes normal. Conjunctiva and sclera are non-icteric and not injected. Cornea within normal limits. Periorbital areas with no swelling, redness, or edema. ENT: Nares patent. No nasal discharge, no septal abnormalities noted. Tympanic membranes are normal and external auditory canals are clear. Oropharynx with no redness, swelling, or masses, exudates, or evidence of obstruction, uvula midline. Mucous membranes moist. Neck: Trachea midline, no thyromegaly or masses palpated, and no cervical lymphadenopathy. Supple, full range of motion without nuchal rigidity, or vertebral point tenderness. No Meningismus. Chest/axilla: Normal chest wall appearance and motion. Nontender with no deformity. No lesions are appreciated. Cardiovascular: Regular rate and rhythm with a normal S1 and S2. No gallops, murmurs, or rubs. Normal PMI, no JVD. No pulse deficits. Respiratory: Lungs have equal breath sounds bilaterally, clear to auscultation and percussion. No rales, rhonchi or wheezes noted. No increased work of breathing, no retractions or nasal flaring. Abdomen/GI: Soft, non-tender, with normal bowel sounds. No distension or tympany. No guarding or rebound. No evidence of tenderness throughout. Back: No spinal tenderness. No costovertebral tenderness. Full range of motion. Male : Normal genitalia with no discharge or lesions. Skin: Warm, dry with normal turgor. Normal color with no rashes, no lesions, and no evidence of cellulitis. Neuro: Awake and alert, GCS 15, oriented to person, place, time, and situation. Cranial nerves II-XII grossly intact. Motor strength 5/5 in all extremities. Sensory grossly intact. Cerebellar exam normal. Normal gait. Psych: Awake, alert, with orientation to person, place and time. Behavior, mood, and affect are within normal limits. Vital Signs: 08:18 BP 180 / 104; Pulse 73; Resp 15; Temp 96.9; Pulse Ox 97% on R/A; ko1 08:33 BP 178 / 90; Pulse 67; Resp 14; Pulse Ox 98% ; ko1 09:00 BP 191 / 96; Pulse 69; Resp 15; Pulse Ox 98% ; ko1 09:45 BP 180 / 86; Pulse 69; Resp 16; Pulse Ox 98% ; ko1 11:00 BP 184 / 88; Pulse 70; Resp 15; Pulse Ox 99% ; jl7 12:00 BP 194 / 86; Pulse 74; Resp 16; Pulse Ox 100% ; jl7 14:00 BP 178 / 84; Pulse 67; Resp 18; Pulse Ox 99% ; jl7 MDM: 08:19 Medical Screening Exam initiated cathi 08:26 Differential diagnosis: closed head injury, Anterior dislocation with fracture, cathi Anterior dislocation without fracture, Posterior dislocation with fracture, Posterior dislocation without fracture, humeral head fracture, glenoid fracture, DJD, tendonitis. Differential Diagnosis altered mental status, flu. Data reviewed: vital signs, nurses notes, EMS record, lab test result(s), EKG, radiologic studies, CT scan, plain films. Consideration of Admission/Observation Escalation of care including admission/observation considered. I considered the following discharge prescriptions or medication management in the emergency department Medications were administered in the Emergency Department. See MAR. Independent interpretation of the following test(s) in the Emergency Department CT Scan: My interpretation is CT TRAUMA. Test considered but Not performed: MRI: NO MRI. Care significantly affected by the following chronic conditions: Hypertension, PARKINSONISM, DEMENTIA. 06/30 08:23 Order name: Basic Metabolic Panel; Complete Time: 10:02 [facility] 06/30 08:23 Order name: CBC with Diff; Complete Time: 10:02 [facility] 06/30 08:23 Order name: LFT's; Complete Time: 10:02 [facility] 06/30 08:23 Order name: Lipase; Complete Time: 10:02 [facility] 06/30 08:23 Order name: Shoulder Right (2 View) XRAY; Complete Time: 10:02 [facility] 06/30 10:02 Order name: Chest Abdomen Pelvis W Cont; Complete Time: 11:09 EDMS 06/30 10:03 Order name: Head C Spine Mpr Wo Con; Complete Time: 10:43 EDMS 06/30 08:23 Order name: Labs collected and sent; Complete Time: 09:28 cathi 06/30 08:31 Order name: Sling; Complete Time: 11:07 [facility] Administered Medications: 08:55 Drug: NS 0.9% IV 1000 ml IV at 1000 ml once; to be given as a bolus over 60 minutes ko1 Route: IV; Rate: 1000 ml; Site: left antecubital; 11:00 Follow up: Response: No adverse reaction; IV Status: Completed infusion; IV Intake: jl7 1000ml Disposition Summary: 06/30/24 10:43 Discharge Ordered Notes: Location: Home cathi Problem: new cathi Symptoms: have improved cathi Condition: Stable cathi Diagnosis - Fall on same level, unspecified cathi - Parkinson's disease cathi - Dementia in other diseases classified elsewhere without behavioral disturbance cathi - Contusion of right shoulder cathi - Solitary pulmonary nodule cathi Followup: cathi - With: Private Physician - When: 2 - 3 days - Reason: Recheck today's complaints, Continuance of care, Re-evaluation by your physician Followup: cathi - With: Toy Worley MD - When: 2 - 3 days - Reason: Recheck today's complaints, Re-evaluation by your physician Discharge Instructions: - Discharge Summary Sheet cathi - Dementia cathi - Parkinson's Disease cathi - Shoulder Pain cathi - Shoulder Pain, [id number] cathi - Pulmonary Nodule cathi - Pulmonary Nodule, Dyip-ti-Pkhe cathi - Parkinson's Disease, Olsu-fr-Bdja cathi - Dementia, Uxfc-hp-Uecm cathi - Dementia Caregiver Guide [facility] Forms: - Medication Reconciliation Form [facility] - Antibiotic Education cathi - Prescription Opioid Use [facility] - Patient Portal Instructions [facility] - Leadership Thank You Letter [facility] Prescriptions: - Motrin IB 200 mg Oral tablet - take 2 tablet ORAL route every 6 hours As needed as needed with food; 30 cathi tablet; Refills: 0, Product Selection Permitted Signatures: Dispatcher [employer] EDAdrien Beal MD MD cha Oliver, Kathy, RN RN ko1 Gabrielle Ghosh RN jl7 Corrections: (The following items were deleted from the chart) 08:23 08:23 BASIC METABOLIC PANEL+C.LAB.BRZ ordered. EDMS EDMS 08:23 08:23 CBC+H.LAB.BRZ ordered. EDMS EDMS 08:23 08:23 Urinalysis+U.LAB.BRZ ordered. EDMS EDMS 08:23 08:23 HEPATIC FUNCTION+C.LAB.BRZ ordered. EDMS EDMS 08:23 08:23 LIPASE+C.LAB.BRZ ordered. EDMS EDMS 08:23 08:23 Head C Spine CAP W Con+CT.RAD.BRZ ordered. EDMS EDMS 08:23 08:23 Shoulder Right 2 View+RAD.RAD.BRZ ordered. EDMS EDMS 09:46 08:23 TYPE AND SCREEN+BB.LAB.BRZ ordered. EDMS EDMS
--- NOTE | 2024-06-30 10:44 | ER ---
Nurse's Notes [facility] Name: Robert Love Jr Age: 74 yrs Sex: Male : 1950 Arrival Date: 06/30/2024 Time: 08:15 Bed 2 Private MD: Diagnosis: Fall on same level, unspecified;Parkinson's disease;Dementia in other diseases classified elsewhere without behavioral disturbance;Contusion of right shoulder;Solitary pulmonary nodule Presentation: 06/30 08:18 Chief complaint: EMS states: patient fell down about 6 steps and complians of neck pain ko1 (chronic kyphosis and neck pain) no LOC. Coronavirus screen: At this time, the client does not indicate any symptoms associated with coronavirus-19. Ebola Screen: No symptoms or risks identified at this time. Initial Sepsis Screen: Does the patient meet any 2 criteria? No. Patient's initial sepsis screen is negative. Does the patient have a suspected source of infection? No. Patient's initial sepsis screen is negative. Risk Assessment: Do you want to hurt yourself or someone else? Patient reports no desire to harm self or others. Onset of symptoms was June 30, 2024. Care prior to arrival: Cervical collar in place. Medication(s) given: Motrin, 200 mg. 08:18 Method Of Arrival: EMS: [email or web address] ko1 08:18 Acuity: FRANCO 3 ko1 Triage Assessment: 08:23 General: Appears in no apparent distress. Behavior is calm, cooperative, appropriate ko1 for age. Pain: Complains of pain in back of neck. Historical: - Allergies: 08:23 No Known Allergies; ko1 - Home Meds: 08:23 Unable to obtain [Active]; ko1 - PMHx: 08:23 Dementia; Parkinsons; ko1 - Immunization history:: Adult Immunizations unknown. - Infectious Disease History:: Denies. - Social history:: Smoking status: unknown. - Family history:: not pertinent. Screenin:24 [facility] ED Fall Risk Assessment (Adult) History of falling in the last 3 months, ko1 including since admission Yes- single mechanical fall (1 pt) Confusion or Disorientation Yes (5 pts) Intoxicated or Sedated No (0 pts) Impaired Gait Yes (1 pt) Mobility Assist Device Used Yes (1 pt) Altered Elimination No (0 pt) Score/Fall Risk Level 3 or more points = High Risk Oriented to surroundings, Maintained a safe environment, Educated pt \T\ family on fall prevention, incl call for assistance when getting out of bed, Assessed \T\ reinforced patient's understanding of fall precautions, Provided non-skid footwear, Hourly rounding (assess needs \T\ fall precautionary measures) done, Used ambulatory aids as needed (educated on \T\ assisted with), Used gait belt as appropriate Implemented a Fall Risk Plan of Care, Apply high fall risk patient identification: yellow non skid footwear/ fall signage, Remained w/in arm's length of patient and in sight while toileting, Offered frequent toileting (1:1 observation), Remained with patient while ambulating, Utilized family, sitter, or virtual heat treat puller as indicated. Abuse screen: Denies threats or abuse. Denies injuries from another. Nutritional screening: No deficits noted. Tuberculosis screening: No symptoms or risk factors identified. Assessment: 08:24 Neuro: Oriented to unable to assess. Cardiovascular: No deficits noted. Respiratory: No ko1 deficits noted. GI: No deficits noted. No signs and/or symptoms were reported involving the gastrointestinal system. : No deficits noted. No signs and/or symptoms were reported regarding the genitourinary system. EENT: No deficits noted. No signs and/or symptoms were reported regarding the EENT system. Derm: No deficits noted. No signs and/or symptoms reported regarding the dermatologic system. Musculoskeletal: Reports pain in back of neck. Injury Description: fall from steps and complains of neck pain (chronic). 13:01 Reassessment: Pt cleaned of urinary incontinence, clean brief applied, linens changed. aa5 Pt's at bedside. . Vital Signs: 08:18 BP 180 / 104; Pulse 73; Resp 15; Temp 96.9; Pulse Ox 97% on R/A; ko1 08:33 BP 178 / 90; Pulse 67; Resp 14; Pulse Ox 98% ; ko1 09:00 BP 191 / 96; Pulse 69; Resp 15; Pulse Ox 98% ; ko1 09:45 BP 180 / 86; Pulse 69; Resp 16; Pulse Ox 98% ; ko1 11:00 BP 184 / 88; Pulse 70; Resp 15; Pulse Ox 99% ; jl7 12:00 BP 194 / 86; Pulse 74; Resp 16; Pulse Ox 100% ; jl7 14:00 BP 178 / 84; Pulse 67; Resp 18; Pulse Ox 99% ; jl7 ED Course: 08:17 Patient arrived in ED. em1 08:18 Cara Swartz, RN is Primary Nurse. ko1 08:19 Adrien Liu MD is Attending Physician. cathi 08:23 Triage completed. ko1 08:23 Arm band placed on right wrist. Patient placed in an exam room, on a stretcher, on ko1 machine specialist, on pulse oximetry, Patient notified of wait time. 08:24 Patient has correct armband on for positive identification. Bed in low position. Call ko1 light in reach. Side rails up X2. Provided Education on: procedures, call light. Client placed on continuous cardiac and pulse oximetry monitoring. NIBP monitoring applied. teacher aide on. Door closed. Noise minimized. Lights dimmed. Warm blanket given. Pillow given. Ice pack to injury. 09:23 Shoulder Right (2 View) XRAY In Process Unspecified. EDMS 09:45 No provider procedures requiring assistance completed. ko1 10:07 Chest Abdomen Pelvis W Cont In Process Unspecified. EDMS 10:07 Head C Spine Mpr Wo Con In Process Unspecified. EDMS 10:43 Toy Worley MD is Referral Physician. cathi 14:00 IV discontinued, intact, bleeding controlled, No redness/swelling at site. Pressure jl7 dressing applied. Administered Medications: 08:55 Drug: NS 0.9% IV 1000 ml IV at 1000 ml once; to be given as a bolus over 60 minutes ko1 Route: IV; Rate: 1000 ml; Site: left antecubital; 11:00 Follow up: Response: No adverse reaction; IV Status: Completed infusion; IV Intake: jl7 1000ml Medication: 08:24 VIS not applicable for this client. ko1 Intake: 11:00 IV: 1000ml; Total: 1000ml. jl7 Outcome: 10:43 Discharge ordered by . cathi 15:20 Discharged to home via wheelchair, with family, jl7 15:20 Condition: stable 15:20 Discharge instructions given to patient, family, Instructed on discharge instructions, follow up and referral plans. medication usage, Demonstrated understanding of instructions, follow-up care, medications, Prescriptions given X 1, 15:24 Patient left the ED. jl7 Signatures: Dispatcher [employer] Adrien Hatch MD MD cha Martinez, Chava em1 Libra Rice, RN RN aa5 Gabrielle Ghosh RN RN jl7 Cara Swartz RN RN ko1
--- NOTE | 2024-06-30 10:52 | RAD REPORT ---
EXAM: CT CHEST, ABDOMEN AND PELVIS WITH CONTRAST CLINICAL INDICATION: FALL TECHNIQUE: CT chest, abdomen and pelvis was performed, following the administration of contrast, as p er department protocol. Axial, sagittal and coronal reconstructions were obtained. One or more of the following dose reduction techniques were used: Automated exposure control, adjustment of the mA a nd/or kV according to patient size, and/or iterative reconstruction. Unless otherwise specified, incidental findings do not require dedicated imaging follow-up. COMPARISON: No prior exam. FINDINGS: LUNGS: 9-10 mm pulmonary nodule is present in the posterior aspect of the left upper lobe. Mild linea r atelectasis is present in both lung bases. The lungs are otherwise clear. PLEURA: No pleural effusion. No pneumothorax. MEDIASTINUM AND LYMPH NODES: No mediastinal mass or fluid collection. Normal size mediastinal, hilar, and axillary lymph nodes. OSSEOUS STRUCTURES AND CHEST WALL: Intact. Slight cortical irregularity in the manubrium of the wilkinson um is likely remote. Correlation with point tenderness in this region may be considered. LIVER: Normal in size and contour. No focal lesion or biliary dilatation. Grossly unremarkable gallbl adder. PANCREAS: No mass, ductal dilation, or jon-pancreatic fluid. SPLEEN: Normal size. No focal lesion. ADRENALS: Normal; no mass. KIDNEYS: Normal size and contour. No hydronephrosis. URINARY BLADDER: Normal contour. GASTROINTESTINAL TRACT: No bowel obstruction, free air, significant free fluid or abscess. APPENDIX: Normal appendix. LYMPH NODES: No lymphadenopathy. MUSCULOSKELETAL: No acute or suspicious osseous abnormality. OTHER: Small fat-containing bleb or hernia. IMPRESSION: No finding to suggest acute trauma-related abnormality. 9-10 mm pulmonary nodule posterior left upper lobe. Consider a non-contrast chest CT at 3 months or PET/CT. Note: These guidelines do not apply to patients younger than 35 years, immunocompromised patients, an d patients with cancer. F/u in patients with significant comorbidities as clinically warranted. For lung cancer screening, adhere to Lung-RADS guidelines. Reference: Radiology. 2017 Nov; 284(1):228-243
[2024-07-01 05:35] VITALS: TEMP 96.9
[2024-07-01 05:43] VITALS: BP 178/84; O2SAT 99
== END 2024-06-30 15:24 | disposition home or self-care (01) ==
LOC: ER 08:15
DX: S40.011A Contusion of right shoulder, initial encounter (principal); R91.1 Solitary pulmonary nodule; W18.30XA Fall on same level, unspecified, initial encounter; G20.A1 Parkinson's disease without dyskinesia, without mention of fluctuations; F02.80 Dementia in other diseases classified elsewhere, unspecified severity, without behavioral disturbance, psychotic disturbance, mood disturbance, and anxiety
CPT/HCPCS: 96361; 85025; 80048; 36415; 80076; 83690; 70450 ×2; 72125 ×2; 71260; 74177; 73030; 96360; 99285; Q9967; J7030

== ENCOUNTER 2024-07-03 21:04 | Observation (INO) | payer OTHER ==
[2024-07-03 22:45] LABS: Absolute Lymphocytes (CBC) 0.9 K/uL (0.7-4.9); Basophils % 0.3 % (0-1.3); Eosinophils % 0.4 % (0-4.4); Hematocrit 47.7 % (39.6-49.0); Hemoglobin 16.4 g/dL (13.6-17.9); Lymphocytes % 9.3 % (15.3-44.8); MCHC 34.5 g/dL (32.0-36.0); MCV 90.1 fL (80-100); MPV 9.5 fL (7.6-11.3); Monocytes % 9.7 % (3.3-12.3); Neutrophils % 80.3 % (41.7-73.7); Platelets 197 thou/uL (152-406); Red Cell Distribution Width 13.4 % (12.1-15.2)
[2024-07-03 22:55] LABS: PT Prothrombin Time 12.3 SECONDS (10.0-13.0); PTT, Activated Partial Thromb 27.8 SECONDS (24.3-36.9); Protime INR 1.08
[2024-07-03 23:05] LABS: Albumin 3.3 g/dL (3.4-5.0); Albumin/Globulin Ratio 0.9 (1.1-1.8); Anion Gap 9.9 mEq/L (5.0-15.0); Globulin 3.8 g/dL (2.3-3.5); Potassium 3.9 mEq/L (3.5-5.1); Protein, Total 7.1 g/dL (6.4-8.2); Troponin High Sensitivity 20.2 pg/mL (<58.9)
[2024-07-03 23:32] LABS: Influenza A Ag Negative; Influenza B Ag Negative; SARS-CoV-2 Antigen Rapid Res Negative (Negative)
[2024-07-03] MEDS ORDERED: HALOPERIDOL LACT 5 MG/ML INJ ONE (23:46)
--- NOTE | 2024-07-04 00:14 | EDPHYS ---
Physician Documentation [facility] Name: Robert Love Jr Age: 74 yrs Sex: Male : 1950 Arrival Date: 07/03/2024 Time: 21:04 Bed 2 Private MD: ED Physician Crow Varela HPI: 07/03 21:25 This 74 yrs old Male presents to ER via Unassigned with complaints of possible failure sp3 to thrive. 21:25 74-year-old male with a history of Parkinson's disease, dementia presents for failure sp3 to thrive, generalized weakness and continued pain to palpation of the chest. Patient sustained a mechanical ground-level fall approximately 2 weeks ago and was seen here and discharged. At that time patient had a full negative traumagram and trauma workup. states that she cannot take care of him at home secondary to his weakness and his and inability to walk or perform his ADLs. She states that anytime she touches his chest he winces in pain. ROS history and physical limited secondary to dementia.. Historical: - Allergies: 21:27 No Known Allergies; al5 - PMHx: 21:27 Dementia; Parkinsons; al5 - PSHx: 21:27 None; al5 - Immunization history:: Adult Immunizations up to date. - Infectious Disease History:: Denies. - Social history:: Smoking status: Patient denies any tobacco usage or history of. ROS: 21:27 Unable to obtain ROS due to altered mental status, baseline dementia, sp3 Exam: 21:28 Constitutional: This is a well developed, well nourished patient who is awake, alert, sp3 and in no acute distress. Head/Face: Normocephalic, atraumatic. Eyes: Pupils equal round and reactive to light, extra-ocular motions intact. Lids and lashes normal. Conjunctiva and sclera are non-icteric and not injected. Cornea within normal limits. Periorbital areas with no swelling, redness, or edema. Neck: Trachea midline, no thyromegaly or masses palpated, and no cervical lymphadenopathy. Supple, full range of motion without nuchal rigidity, or vertebral point tenderness. No Meningismus. Abdomen/GI: Soft, non-tender, with normal bowel sounds. No distension or tympany. No guarding or rebound. No evidence of tenderness throughout. Back: No spinal tenderness. No costovertebral tenderness. Full range of motion. Skin: Warm, dry with normal turgor. Normal color with no rashes, no lesions, and no evidence of cellulitis. 21:28 Chest/axilla: Patient winces in pain on palpation of the anterior chest right greater than left. Breath sounds are present bilaterally. Vital signs are normal.. 21:28 Musculoskeletal/extremity: Multiple ecchymoses on patient's back noted.. 21:31 ECG was reviewed by the Attending Physician. EKG demonstrates normal sinus rhythm at 75 sp3 bpm with first-degree AV block of 212 ms, leftward axis and nonspecific diffuse ST/T changes without evidence of acute ischemia. Vital Signs: 21:21 BP 164 / 93; Pulse 76; Resp 17; Temp 98.3; Pulse Ox 95% on R/A; Weight 102.06 kg; al5 Height 6 ft. 0 in. ; 21:30 BP 143 / 99; Pulse 72; Resp 14; Pulse Ox 97% on R/A; al5 22:00 BP 198 / 98; Pulse 72; Resp 17; Pulse Ox 99% on R/A; al5 23:00 BP 208 / 99; Pulse 75; Resp 14; Pulse Ox 100% on R/A; al5 23:30 BP 179 / 91; Pulse 75; Resp 16; Pulse Ox 98% on R/A; al5 07/04 00:00 BP 146 / 97; Pulse 77; Resp 16; Pulse Ox 96% on R/A; al5 01:00 BP 190 / 68; Pulse 76; Resp 15; Pulse Ox 97% on R/A; al5 02:00 BP 176 / 89; Pulse 83; Resp 14; Pulse Ox 96% on R/A; al5 07/03 21:21 Body Mass Index 30.52 (102.06 kg, 182.88 cm) al5 MDM: 07/03 21:08 Medical Screening Exam initiated sp3 21:29 Data reviewed: vital signs, nurses notes, old medical records, lab test result(s), EKG, sp3 radiologic studies. ED course: 74-year-old male with continued sequela from his fall 2 weeks ago with current generalized weakness and continued chest pain. Wide differential exist including lingering pain, other infection, pulmonary pathology including atelectasis, missed rib fracture or other missed traumatic injury, ACS, UTI, among others. Workup will include of full laboratory panel, UA, swabs, CT chest and EKG. Probable admission given patient's inability to conduct ADLs with case management for consultation regarding placement. states that she will likely push hospice as a disposition.. 07/03 21:09 Order name: Blood Culture Adult (2) [facility] 07/03 21:09 Order name: CBC with Diff; Complete Time: 23:38 [facility] 07/03 21:09 Order name: CMP; Complete Time: 23:38 [facility] 07/03 21:09 Order name: Lactate w/ 2H reflex if indic. [facility] 07/03 21:09 Order name: Protime (+inr); Complete Time: 23:38 [facility] 07/03 21:09 Order name: Ptt, Activated; Complete Time: 23:38 [facility] 07/03 21:09 Order name: Urinalysis w/ reflexes [facility] 07/03 21:09 Order name: Troponin High Sensitivity; Complete Time: 23:38 [facility] 07/03 21:09 Order name: COVID-19 Ag + Flu A+B Ag; Complete Time: 23:38 3 07/04 00:45 Order name: Urinalysis w/ reflexes [facility] 07/04 00:45 Order name: CBC with Automated Diff [facility] 07/04 00:45 Order name: CBC with Automated Diff [facility] 07/04 00:45 Order name: Comprehensive Metabolic Panel [facility] 07/04 00:45 Order name: Comprehensive Metabolic Panel [facility] 07/04 00:45 Order name: Troponin High Sensitivity [facility] 07/04 00:45 Order name: Troponin High Sensitivity [facility] 07/04 00:45 Order name: Troponin High Sensitivity [facility] 07/04 00:45 Order name: Troponin High Sensitivity [facility] 07/03 21:21 Order name: CT Chest Wo Con 3 07/03 21:09 Order name: EKG; Complete Time: 21:10 [facility] 07/04 00:45 Order name: Physical Therapy Consult [facility] 07/04 00:46 Order name: Case Management Consult [facility] 07/03 21:09 Order name: Cardiac monitoring; Complete Time: 21:31 [facility] 07/03 21:09 Order name: EKG - Nurse/Tech; Complete Time: 21:31 [facility] 07/03 21:09 Order name: IV Saline Lock - Large Bore; Complete Time: 22:31 sp3 07/03 21:09 Order name: Labs collected and sent; Complete Time: 22:31 sp3 07/03 21:09 Order name: O2 Per Protocol; Complete Time: 21:31 sp3 07/03 21:09 Order name: O2 Sat Monitoring; Complete Time: 21:31 sp3 07/03 21:09 Order name: Vital Signs; Complete Time: : sp3 07/03 22:38 Order name: Misc. Order: recollect lactate, "too old" per ty; Complete Time: 23:51 sb4 Administered Medications: 23:50 Drug: Haloperidol IVP 5 mg IVP once Route: IVP; Site: left forearm; al5 07/04 00:43 Follow up: Response: No adverse reaction; RASS: Agitated (+2) al5 00:43 Drug: Haloperidol IVP 10 mg IVP once Route: IVP; Site: left forearm; al5 01:34 Follow up: Response: No adverse reaction; RASS: Restless (+1) al5 02:36 Drug: Haloperidol IVP 10 mg IVP once Route: IVP; Site: left forearm; al5 03:26 Follow up: Response: No adverse reaction; RASS: Agitated (+2) al5 03:25 Drug: Ativan IVP 1 mg IVP once Route: IVP; Site: left forearm; al5 Disposition Summary: 07/04/24 00:13 Hospitalization Ordered Notes: Hospitalization Status: Observation sp3 Condition: Stable sp3 Problem: an acute exacerbation sp3 Symptoms: have worsened sp3 Bed/Room Type: Standard sp3 Location: [facility] ER HOLD(07/04/24 01:21) Room Assignment: ERHOLD-(07/04/24 01:21) cg Provider: Lambert Jefferson(07/04/24 01:26) sp3 Diagnosis - Parkinson's disease, dementia, failure to thrive, chest contusion sp3 Forms: - Medication Reconciliation Form sp3 - SBAR form sp3 - Leadership Thank You Letter sp3 Signatures: Dispatcher [employer] Luda Ny RN RN cg Crow Varela MD MD sp3 Yeimi Bob PA-Cari PA-Cari sb4 Langhorst, Anna, RN RN al5 Corrections: (The following items were deleted from the chart) 07/03 22:20 21:10 Chest Single View+[id number].BRZ ordered. EDMS EDMS 07/04 00: 00:13 Telemetry/MedSurg (observation) sp3 cg 00:13 sp3 cg 00:13 Brian Rico sp3 sp3
--- NOTE | 2024-07-04 00:14 | ER ---
Nurse's Notes [facility] Name: Robert Love Jr Age: 74 yrs Sex: Male : 1950 Arrival Date: 07/03/2024 Time: 21:04 Bed 2 Private MD: Diagnosis: Parkinson's disease, dementia, failure to thrive, chest contusion Presentation: 07/03 21:21 Chief complaint: Spouse and/or significant other states: patient condition steadily al5 declining post fall last week. Coronavirus screen: At this time, the client does not indicate any symptoms associated with coronavirus-19. Ebola Screen: No symptoms or risks identified at this time. Initial Sepsis Screen: Does the patient meet any 2 criteria? No. Patient's initial sepsis screen is negative. Does the patient have a suspected source of infection? No. Patient's initial sepsis screen is negative. Risk Assessment: Do you want to hurt yourself or someone else? Patient reports no desire to harm self or others. Onset of symptoms was June 26, 2024. 21:21 Method Of Arrival: EMS: [facility] al5 21:21 Acuity: FRANCO 3 al5 Triage Assessment: 21:27 General: Appears in no apparent distress. comfortable, Behavior is calm, cooperative. al5 Pain: Complains of pain in back and chest Unable to use pain scale. Does not appear to understand pain scale. EENT: No signs and/or symptoms were reported regarding the EENT system. Neuro: Level of Consciousness is awake, alert, confused, hx of dementia. Oriented to baseline. Gait is unsteady. Cardiovascular: Capillary refill < 3 seconds Patient's skin is warm and dry. Respiratory: Airway is patent Respiratory effort is even, unlabored, Respiratory pattern is regular, symmetrical. GI: No signs and/or symptoms were reported involving the gastrointestinal system. : No signs and/or symptoms were reported regarding the genitourinary system. Derm: Skin is intact, Skin is pink, warm \T\ dry. normal. Musculoskeletal: Parent/caregiver report the patient having steadily declining mobility since fall last week. Historical: - Allergies: 21: No Known Allergies; al5 - PMHx: :27 Dementia; Parkinsons; al5 - PSHx: : None; al5 - Immunization history:: Adult Immunizations up to date. - Infectious Disease History:: Denies. - Social history:: Smoking status: Patient denies any tobacco usage or history of. Screenin:30 [facility] ED Fall Risk Assessment (Adult) History of falling in the last 3 months, al5 including since admission Yes- single mechanical fall (1 pt) Confusion or Disorientation Yes (5 pts) Intoxicated or Sedated No (0 pts) Impaired Gait Yes (1 pt) Mobility Assist Device Used No (0 pt) Altered Elimination Yes (1 pt) Score/Fall Risk Level 3 or more points = High Risk Oriented to surroundings, Maintained a safe environment, Hourly rounding (assess needs \T\ fall precautionary measures) done, Utilized family, sitter, or virtual perlite grinder as indicated. Abuse screen: Denies threats or abuse. Denies injuries from another. Nutritional screening: No deficits noted. Tuberculosis screening: No symptoms or risk factors identified. Assessment: 21:29 Reassessment: see triage assessment. al5 22:49 Reassessment: Patient appears in no apparent distress at this time. No changes from al5 previously documented assessment. Patient and/or family updated on plan of care and expected duration. Pain level reassessed. skin pink/warm/dry, respirations even and unlabored. 07/04 00:00 Reassessment: Patient appears in no apparent distress at this time. No changes from al5 previously documented assessment. 02:37 Reassessment: Patient appears in no apparent distress at this time. No changes from al5 previously documented assessment. patient admitted to ED hold. Vital Signs: 07/03 21:21 BP 164 / 93; Pulse 76; Resp 17; Temp 98.3; Pulse Ox 95% on R/A; Weight 102.06 kg; al5 Height 6 ft. 0 in. ; 21:30 BP 143 / 99; Pulse 72; Resp 14; Pulse Ox 97% on R/A; al5 22:00 BP 198 / 98; Pulse 72; Resp 17; Pulse Ox 99% on R/A; al5 23:00 BP 208 / 99; Pulse 75; Resp 14; Pulse Ox 100% on R/A; al5 23:30 BP 179 / 91; Pulse 75; Resp 16; Pulse Ox 98% on R/A; al5 07/04 00:00 BP 146 / 97; Pulse 77; Resp 16; Pulse Ox 96% on R/A; al5 01:00 BP 190 / 68; Pulse 76; Resp 15; Pulse Ox 97% on R/A; al5 02:00 BP 176 / 89; Pulse 83; Resp 14; Pulse Ox 96% on R/A; al5 07/03 21:21 Body Mass Index 30.52 (102.06 kg, 182.88 cm) al5 ED Course: 07/03 21:05 Patient arrived in ED. jj6 21:08 Crow Varela MD is Attending Physician. sp3 21:19 Anna Marin, DARIN is Primary Nurse. al5 21:27 Triage completed. al5 21:29 Arm band placed on left wrist. Patient placed in the treatment room, on a stretcher, in al5 view of staff members, on monitoring and evaluation advisor, on pulse oximetry. 21:31 Patient has correct armband on for positive identification. Placed in gown. Bed in low al5 position. Call light in reach. Side rails up X2. Provided Education on: plan of care. 21:31 No provider procedures requiring assistance completed. al5 22:00 One-on-one care X 200 minutes. kb3 22:05 First set of blood cultures drawn by me. oe 22:10 Inserted saline lock: 20 gauge in left forearm, using aseptic technique. Blood oe collected. Flushed with 10 mL NS. 22:24 Second set of blood cultures drawn by me. oe 22:36 Inserted saline lock: 22 gauge in right forearm, using aseptic technique. Blood oe collected. Flushed with 10 mL NS. 22:36 COVID-19 Ag + Flu A+B Ag Sent. oe 22:36 Troponin High Sensitivity Sent. oe 22:36 Blood Culture Adult (2) Sent. oe 22:36 CBC with Diff Sent. oe 22:36 CMP Sent. oe 22:36 Lactate w/ 2H reflex if indic. Sent. oe 22:36 Protime (+inr) Sent. oe 22:37 Ptt, Activated Sent. oe 22:59 CT Chest Wo Con In Process Unspecified. EDMS 07/04 00:12 Brian Rico MD is Hospitalizing Provider. sp3 01:26 Lambert Jefferson MD is Hospitalizing Provider. sp3 02:36 Patient admitted, IV remains in place. al5 03:33 Inserted saline lock: 22 gauge in left forearm, using aseptic technique. Flushed with oe 10 mL NS. Administered Medications: 07/03 23:50 Drug: Haloperidol IVP 5 mg IVP once Route: IVP; Site: left forearm; al5 07/04 00:43 Follow up: Response: No adverse reaction; RASS: Agitated (+2) al5 00:43 Drug: Haloperidol IVP 10 mg IVP once Route: IVP; Site: left forearm; al5 01:34 Follow up: Response: No adverse reaction; RASS: Restless (+1) al5 02:36 Drug: Haloperidol IVP 10 mg IVP once Route: IVP; Site: left forearm; al5 03:26 Follow up: Response: No adverse reaction; RASS: Agitated (+2) al5 03:25 Drug: Ativan IVP 1 mg IVP once Route: IVP; Site: left forearm; al5 Medication: 07/03 21:30 VIS not applicable for this client. al5 Outcome: 07/04 00:13 Decision to Hospitalize by Provider. sp3 02:36 Admitted to ER Hold. Please see [facility] for further documentation. al5 02:36 Condition: stable 02:36 Instructed on the need for admit, 18:32 Patient left the ED. Signatures: Dispatcher [employer] EDMS Phyllis Dodd RN RN Aaron Tomlinson Setul, MD MD sp3 Jessi Rosales Kelly, RN RN kb3 Anna Marin RN RN al5 Corrections: (The following items were deleted from the chart) 07/03 22:38 22:24 Second set of blood cultures drawn oe bobby
--- NOTE | 2024-07-04 00:22 | P.HP ---
Certification for Inpatient Patient admitted to: Inpatient With expected LOS: >2 Midnights Practitioner: I am a practitioner with admitting privileges, knowledge of patient current condition, hospital course, and medical plan of care. Services: Services provided to patient in accordance with Admission requirements found in Title 42 Section 412.3 of the Code of Federal Regulations Patient History Date of Service: 07/04/24 Reason for admission: Failure to Thrive History of Present Illness: 74 yrs old Male with past medical history of Parkinson's disease and dementia was brought to ER with complaints of possible failure to thrive, generalized weakness and continued pain to palpation of the chest. Patient sustained a mechanical ground-level fall approximately 2 weeks ago and was seen here and discharged. At that time patient had a full negative traumagram and trauma workup. states that she cannot take care of him at home secondary to his weakness and his inability to walk or perform his ADLs. ROS history and physical limited secondary to dementia.. Allergies No Known Allergies Allergy (Verified 06/08/19 14:18) Physical Examination - Vital Signs Temperature: 97.2 F Blood Pressure: 95/55 Pulse: 86 Respirations: 18 Pulse Ox (%): 94 - Studies Laboratory Data (last 24 hrs) 07/03/24 07/03/24 07/03/24 22:05 22:05 22:05 WBC 10.00 Hgb 16.4 Hct 47.7 Plt Count 197 PT 12.3 INR 1.08 APTT 27.8 Sodium 141 Potassium 3.9 BUN 27 H Creatinine 1.18 Glucose 108 H Total Bilirubin 1.0 AST 43 H ALT 28 Alkaline Phosphatase 92 Assessment and Plan - Plan Please cancel this document This is a duplicate - Advance Directives Does patient have a Living Will: No Does patient have a Durable POA for Healthcare: No
[2024-07-04] MEDS ORDERED: ACETAMINOPHEN 325 MG TABLET PO PRN (00:39)
[2024-07-04] MEDS ORDERED: ONDANSETRON 4 MG/2 ML VIAL IV PRN (00:39)
[2024-07-04] MEDS ORDERED: HALOPERIDOL LACT 5 MG/ML INJ ONE ×2 (00:40→02:32)
[2024-07-04] MEDS ORDERED: MORPHINE 2 MG/ML SYR IV PRN (00:43)
[2024-07-04] MEDS ORDERED: HYDROCODONE/APAP 5/325 MG TAB PO PRN (00:43)
--- NOTE | 2024-07-04 01:16 | RAD REPORT ---
CLINICAL HISTORY: Continued pain since last fall; Trauma. COMPARISON: CT chest, abdomen, and pelvis from June 30, 2024. TECHNIQUE: CT of the chest was performed without contrast. Axial, coronal, and sagittal reconstructio ns were created and sent to PACS. This exam was performed according to our departmental dose-optimization program, which includes autom ated exposure control, adjustment of the mA and/or kV according to patient size and/or use of iterative reconstruction technique. FINDINGS: Mild motion degradation. Lungs and pleura: The previously seen left upper lobe pulmonary nodule is not clearly visualized on t his exam, likely related to motion degradation. No pulmonary consolidation. No pleural effusion. No pneumothorax. Mediastinum and neck: No mediastinal lymphadenopathy by CT size criteria. Unremarkable appearance of the thyroid gland. Cardiovascular: No cardiomegaly or pericardial effusion. No thoracic aortic aneurysm. Moderate amount of coronary artery calcifications. Abdomen: No significant upper abdominal abnormality identified. Musculoskeletal: Buckled appearance of the lower anterior manubrium, favor chronic. Demineralized teodoro earance of the bones. Suspected remote prior healed multilevel anterior rib fractures bilaterally. Vertebral body height and alignment are maintained. No concerning osseous abnormality. IMPRESSION: 1. No definite acute findings. 2. Buckled appearance of the manubrium, favored chronic. This can be correlated with point tenderne ss. 3. Suspected remote prior healed multilevel anterior rib fractures. Electronically signed by: La Almaguer MD 07/03/2024 11:43 PM [facility] Due to temporary technical issues with the PACS/[employer] reporting system, reports are being debbie d by the in-house radiologist without review as a courtesy to ensure prompt reporting the interpreting radiologist is fully responsible for the content of the report. Transcribed Date/Time: 07/04/2024 1:15 AM
[2024-07-04] MEDS ORDERED: LORazepam 2 MG/ML VIAL ONE (03:16)
[2024-07-04 03:30] VITALS: BMI 30.5
[2024-07-04 03:44] VITALS: O2SAT 96
[2024-07-04] MEDS: NA CHLORIDE 0.9% 1,000 ML IV SCH (04:04)
[2024-07-04] MEDS ORDERED: NA CHLORIDE 0.9% 1,000 ML ONE (09:49)
[2024-07-04 10:15] LABS: Calcium Oxalate Crystals- Ur Moderate /HPF (None Seen); Specific Gravity > 1.030 (1.005-1.030); Sqamous Epithelial <5 /HPF (None Seen); Transitional Epithelial <5 /HPF (None Seen); Urine Bacteria None Seen /HPF (<20); Urine Bilirubin NEGATIVE (Negative); Urine Blood Negative (Negative); Urine Clarity Turbid (Clear); Urine Color Yellow (Yellow); Urine Culture Reflex Order NOT NEEDED; Urine Glucose NEGATIVE (Negative); Urine Ketones 1+ (Negative); Urine Microscopic Reflex YN ORDER UMIC; Urine Mucus Slight /HPF (None Seen); Urine Nitrite NEGATIVE (Negative); Urine Protein 1+ (Negative); Urine Urobilinogen 1+ (Normal); Urine WBC <5 /HPF (<5)
--- NOTE | 2024-07-04 17:23 | P.SSS ---
Patient History Date of Service: 07/04/24 Reason for admission: Failure to Thrive History of Present Illness: CASSANDRA HAS SEVERE PARKINSON'S. HE IS DECLINING, NOT EATING WELL. NOT ABLE TO WALK ANY LONGER. FAMILY WANTS HOSPICE. THEY BROUGHT HIM TO ER. Allergies No Known Allergies Allergy (Verified 06/08/19 14:18) Home medications list reviewed: Yes - Past Medical/Surgical History -: parkinsons disease -: dementia - Social History Smoking Status: Never smoker Place of Residence: Home Review of Systems is unable to be obtained Physical Examination - Vital Signs Temperature: 98.1 F Blood Pressure: 160/71 Pulse: 75 Respirations: 15 Pulse Ox (%): 95 - Physical Exam General: Mild distress, Unresponsive HEENT: Atraumatic, PERRLA, Mucous membr. moist/pink, EOMI, Sclerae nonicteric Neck: Supple, 2+ carotid pulse no bruit, No LAD, Without JVD or thyroid abnormality Respiratory: Clear to auscultation bilaterally, Normal air movement Cardiovascular: Regular rate/rhythm, Normal S1 S2 Gastrointestinal: Normal bowel sounds, No tenderness Musculoskeletal: No tenderness Integumentary: No rashes Neurological: Other (SEVERE PD.) Lymphatics: No axilla or inguinal lymphadenopathy - Studies Laboratory Data (last 24 hrs) 07/03/24 07/03/24 07/03/24 22:05 22:05 22:05 WBC 10.00 Hgb 16.4 Hct 47.7 Plt Count 197 PT 12.3 INR 1.08 APTT 27.8 Sodium 141 Potassium 3.9 BUN 27 H Creatinine 1.18 Glucose 108 H Total Bilirubin 1.0 AST 43 H ALT 28 Alkaline Phosphatase 92 - Diagnosis (Problem(s)) (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 [facility] CALLED IN BY AMA. SON CAME TO OFFICE AND WE TALKED. FAMILY WANTS TO TAKE HIM HOME AND NOT NH. - Disposition Disposition: ROUTINE DISCHARGE
[2024-07-04 21:41] VITALS: BP 95/55; TEMP 97.2
== END 2024-07-04 18:31 | disposition home health service (06) ==
LOC: ER 21:04 → ERHOLD 07-04 00:39 → INTOOBSV 07-04 00:39
PROVIDERS: ADMIT Internal Medicine; ATTEND Internal Medicine
DX: R62.7 Adult failure to thrive (principal); G20.A1 Parkinson's disease without dyskinesia, without mention of fluctuations; F02.C0 Dementia in other diseases classified elsewhere, severe, without behavioral disturbance, psychotic disturbance, mood disturbance, and anxiety; R07.89 Other chest pain; Z68.30 Body mass index [BMI] 30.0-30.9, adult; Z11.52 Encounter for screening for COVID-19
CPT/HCPCS: 93005; 87040 ×2; 85025; 81001; 36415; 85610; 83605; 85730; 84484 ×4; 80053; 71250; 87428; J1630 ×3; J7030; G0378